=== PATIENT | male | born 1945 | race Two or more races ===

== ENCOUNTER 2020-05-25 22:09 | Inpatient (IN) | payer MEDICARE, MEDICAID ==
[~2020-05-25] VITALS: Ht 180.3 cm; Wt 71.0 kg
[2020-05-25 22:28] LABS: ABG CARBOXYHEMOGLOBIN 0.5 % (0.0-1.5); ABG HCO3 27.8 mmol/L (22.0-26.0); ABG METHEMOGLOBIN 0.2 % (0.0-1.5); ABG OXYGEN CONTENT 13.3 mL/dL (15.0-23.0); ABG OXYGEN SATURATION 98.4 % (95.0-98.0); ABG OXYHEMOGLOBIN 97.7 % (94.0-100.0); ABG PCO2 41 mmHg (35-45); ABG PH 7.452 (7.35-7.450); ABG TOTAL HEMOGLOBIN 9.5 G/dL (12.0-18.0); SOURCE, BLOOD GAS ARTERIAL; TEMPERATURE, FAHRENHEIT, BG 98.6 FAHREN (96.0-98.6)
[2020-05-25 22:29] LABS: INSPIRATORY TIME, BG 0.9 SEC; O2 DEVICE,BLOOD GAS BIPAP (ROOM AIR); SITE, BLOOD GAS RT RADIAL
[2020-05-25] MEDS ORDERED: 0.9% SODIUM CHLORIDE 10 ML SYRINGE IVP PRN (22:30)
[2020-05-25] MEDS ORDERED: PRAV20TA4 PO (22:32)
[2020-05-25] MEDS ORDERED: PHOSLOC PO (22:32)
[2020-05-25] MEDS ORDERED: AMLO-258 PO (22:32)
[2020-05-25] MEDS ORDERED: IPRA4AER IH (22:32)
[2020-05-25] MEDS ORDERED: PANT20TA PO (22:32)
[2020-05-25] MEDS ORDERED: FOLI0.8T22 PO (22:32)
[2020-05-25] MEDS ORDERED: CLOP-31 PO (22:32)
[2020-05-25] MEDS ORDERED: TELM1TAB32 PO (22:32)
[2020-05-25] MEDS ORDERED: METO25XL PO (22:32)
[2020-05-25] MEDS ORDERED: SEVE800T17 PO (22:32)
[2020-05-25] MEDS ORDERED: ASCO500 PO (22:32)
[2020-05-25] MEDS ORDERED: SENN8.6T20 PO (22:32)
[2020-05-25] MEDS ORDERED: GABA-1216 PO (22:32)
[2020-05-25 22:46] LABS: BASOPHILS % (AUTO) 0.4 % (0.0-2.0); HEMATOCRIT 29.8 % (41-53); HEMOGLOBIN 9.5 g/dL (13.5-17.5); LYMPHOCYTES # (AUTO) 6.1 K/uL (1.0-4.8); LYMPHOCYTES % (AUTO) 23.7 % (22.0-44.0); MEAN CORPUSCULAR HEMOGLOBIN 29.9 pg (26.0-34.0); MEAN CORPUSCULAR VOLUME 94 fL (80-100); MONOCYTES # (AUTO) 2.2 K/uL (0.1-1.0); MONOCYTES % (AUTO) 8.6 % (2.0-9.0); NEUTROPHILS # (AUTO) 16.9 K/uL (1.8-7.7); NEUTROPHILS % (AUTO) 66.3 % (40.0-70.0); PLATELET COUNT (AUTO) 483 K/uL (150-450); RED BLOOD CELL COUNT(AUTO) 3.19 MIL/uL (4.50-5.90); RED CELL DISTRIBUTION WIDTH 20.8 % (11.5-14.5)
[2020-05-25] MEDS ORDERED: VANCOMYCIN HCL 1.5 GM in DEXTROSE 5%-WATER 250 ML IV ONE (23:00)
[2020-05-25] MEDS ORDERED: PIPERACILLIN SODIUM/TAZOBACTAM 2.25 GM in DEXTROSE 5%-WATER 50 ML IV ONE (23:00)
[2020-05-25 23:06] LABS: ANION GAP 10 mmol/L (8-16); CALCIUM, TOTAL 9.3 mg/dL (8.8-10.5); CARBON DIOXIDE 30 mmol/L (22-29); CHLORIDE 96 mmol/L (98-107); CREATININE 8.04 mg/dL (0.60-1.30); GLOMERULAR FILTR. RATE CALC 7 mL/min (>60); GLUCOSE,RANDOM 202 mg/dL (70-110); POTASSIUM 4.6 mmol/L (3.5-5.1); SODIUM SERUM 136 mmol/L (136-145); UREA NITROGEN, BLOOD 75 mg/dL (7-18)
[2020-05-25 23:13] LABS: ALANINE AMINOTRANSFERASE 19 U/L (12-78); ALBUMIN 3.1 g/dL (3.4-5.0); ALKALINE PHOSPHATASE 116 U/L (46-116); ASPARTATE AMINOTRANSFERASE 27 U/L (15-37); BILIRUBIN,TOTAL 0.4 mg/dL (0.1-1.0); CREATINE KINASE, TOTAL ONLY 49 U/L (39-308); TOTAL PROTEIN, SERUM 8.6 g/dL (6.4-8.2)
[2020-05-25 23:20] LABS: INR 1.1 (0.9-1.1); PROTHROMBIN TIME 11.1 SEC (9.4-11.6)
[2020-05-26 00:08] LABS: B-TYPE NATRIURETIC PEPTIDE > 5000 pg/mL (0-100)
[2020-05-26 00:14] LABS: LACTIC ACID 2.5 mmol/L (0.4-2.0)
[2020-05-26] MEDS ORDERED: SODIUM CHLORIDE 0.9% 100 ML ONE (00:26)
[2020-05-26] MEDS ORDERED: IOVERSOL 350 MG/ML 100 ML VIAL ONE (00:26)
[2020-05-26] MEDS ORDERED: HEPARIN SODIUM 25000 UNITS/D5W 250 ML IV PRN (01:59)
[2020-05-26] MEDS ORDERED: HEPARIN SODIUM,PORCINE 5,000 UNITS/ML VIAL IVP PRN ×2 (02:00)
[2020-05-26] MEDS ORDERED: ACETAMINOPHEN 325 MG TABLET PO PRN (02:15)
[2020-05-26] MEDS ORDERED: ONDANSETRON HCL 4 MG/2 ML VIAL IVP PRN (02:15)
[2020-05-26 04:11] VITALS: BP 143/72
[2020-05-26 06:33] LABS: D-DIMER 3.09 mg/L FEU (0.00-0.50); INR 1.1 (0.9-1.1); PROTHROMBIN TIME 11.5 SEC (9.4-11.6)
[2020-05-26] MEDS ORDERED: PIPERACILLIN SODIUM/TAZOBACTAM 2.25 GM in DEXTROSE 5%-WATER 50 ML IV ONE (07:00)
[2020-05-26] MEDS: PANTOPRAZOLE SODIUM 80 MG in SODIUM CHLORIDE 0.9% 100 ML IV SCH ×2 (07:01→18:51)
[2020-05-26 07:35] LABS: C-REACTIVE PROTEIN QUANT 5.52 mg/dL (0.00-0.30)
[2020-05-26 07:48] VITALS: BP 129/61
[2020-05-26] MEDS ORDERED: SODIUM CHLORIDE 0.9% 250 ML IV ONE (08:18)
[2020-05-26] MEDS: FUROSEMIDE 40 MG/4 ML VIAL IVP SCH ×2 (09:37→21:28)
[2020-05-26 11:35] VITALS: BP 145/68
[2020-05-26] MEDS ORDERED: SODIUM CHLORIDE 0.9% 2,000 ML ONE (13:21)
[2020-05-26] MEDS ORDERED: [UNRECOGNIZED DRUG - OTHER] PO SCH (15:15)
[2020-05-26] MEDS ORDERED: CLOPIDOGREL BISULFATE 75 MG TABLET PO SCH (15:15)
[2020-05-26] MEDS ORDERED: VANCOMYCIN HCL 1 GM/D5% WATER 200 ML IV PRN (15:15)
[2020-05-26] MEDS ORDERED: [UNRECOGNIZED DRUG - OTHER] PO SCH (15:15)
[2020-05-26] MEDS ORDERED: VITAMIN B COMP/VIT C/FOLIC ACID CAPSULE PO SCH (15:15)
[2020-05-26 16:14] VITALS: BP 161/82
[2020-05-26 17:06] LABS: BASOPHILS % (AUTO) 0.8 % (0.0-2.0); EOSINOPHILS % (AUTO) 1.3 % (1.0-6.0); HEMATOCRIT 21.1 % (41-53); LYMPHOCYTES # (AUTO) 1.7 K/uL (1.0-4.8); LYMPHOCYTES % (AUTO) 13.4 % (22.0-44.0); MEAN CORPUSCULAR HEMOGLOBIN 30.6 pg (26.0-34.0); MEAN CORPUSCULAR HGB CONC 32.9 G/dL (31.0-37.0); MEAN CORPUSCULAR VOLUME 93 fL (80-100); MONOCYTES # (AUTO) 1.2 K/uL (0.1-1.0); MONOCYTES % (AUTO) 9.8 % (2.0-9.0); NEUTROPHILS # (AUTO) 9.2 K/uL (1.8-7.7); NEUTROPHILS % (AUTO) 74.7 % (40.0-70.0); PLATELET COUNT (AUTO) 310 K/uL (150-450); RED BLOOD CELL COUNT(AUTO) 2.27 MIL/uL (4.50-5.90); RED CELL DISTRIBUTION WIDTH 20.5 % (11.5-14.5)
[2020-05-26 17:20] LABS: CALCIUM, TOTAL 8.5 mg/dL (8.8-10.5); CREATININE 9.05 mg/dL (0.60-1.30); POTASSIUM 4.4 mmol/L (3.5-5.1)
[2020-05-26 17:26] LABS: ALBUMIN 2.4 g/dL (3.4-5.0); BILIRUBIN,TOTAL 0.4 mg/dL (0.1-1.0); TOTAL PROTEIN, SERUM 6.6 g/dL (6.4-8.2)
[2020-05-26] MEDS: PRAVASTATIN SODIUM 20 MG TABLET PO SCH (18:51)
[2020-05-26] MEDS: PIPERACILLIN SODIUM/TAZOBACTAM 2.25 GM in DEXTROSE 5%-WATER 50 ML IV SCH (18:51)
[2020-05-26] MEDS: SENNA 187 MG TABLET PO SCH (18:51)
[2020-05-26] MEDS: VITAMIN B COMP/VIT C/FOLIC ACID CAPSULE PO SCH (18:52)
[2020-05-26] MEDS: CALCIUM ACETATE 667 MG CAPSULE PO SCH (18:52)
[2020-05-26] MEDS: ASCORBIC ACID 500 MG TABLET PO SCH (18:52)
[2020-05-26] MEDS: SEVELAMER CARBONATE 800 MG TABLET PO SCH (18:52)
[2020-05-26 20:19] VITALS: BP 163/72
[2020-05-26] MEDS: GABAPENTIN 100 MG CAPSULE PO SCH (21:29)
[2020-05-26] MEDS: METOPROLOL SUCCINATE 25 MG ER TABLET PO SCH (21:29)
[2020-05-26 23:43] VITALS: BP 160/78
[2020-05-27] MEDS: PIPERACILLIN SODIUM/TAZOBACTAM 2.25 GM in DEXTROSE 5%-WATER 50 ML IV SCH ×3 (01:24→17:37)
[2020-05-27] MEDS: PANTOPRAZOLE SODIUM 80 MG in SODIUM CHLORIDE 0.9% 100 ML IV SCH (04:30)
[2020-05-27 04:35] VITALS: BP 157/74
[2020-05-27 06:54] LABS: BASOPHILS % (AUTO) 0.4 % (0.0-2.0); EOSINOPHILS % (AUTO) 2.1 % (1.0-6.0); HEMATOCRIT 22.4 % (41-53); HEMOGLOBIN 7.6 g/dL (13.5-17.5); LYMPHOCYTES # (AUTO) 1.6 K/uL (1.0-4.8); LYMPHOCYTES % (AUTO) 12.5 % (22.0-44.0); MEAN CORPUSCULAR HEMOGLOBIN 31.2 pg (26.0-34.0); MEAN CORPUSCULAR HGB CONC 33.8 G/dL (31.0-37.0); MEAN CORPUSCULAR VOLUME 92 fL (80-100); MONOCYTES # (AUTO) 1.7 K/uL (0.1-1.0); MONOCYTES % (AUTO) 13.4 % (2.0-9.0); NEUTROPHILS # (AUTO) 8.9 K/uL (1.8-7.7); NEUTROPHILS % (AUTO) 71.6 % (40.0-70.0); PLATELET COUNT (AUTO) 302 K/uL (150-450); RED BLOOD CELL COUNT(AUTO) 2.43 MIL/uL (4.50-5.90); RED CELL DISTRIBUTION WIDTH 21.1 % (11.5-14.5)
[2020-05-27 07:30] LABS: ALBUMIN 2.4 g/dL (3.4-5.0); BILIRUBIN,TOTAL 0.5 mg/dL (0.1-1.0); CALCIUM, TOTAL 8.6 mg/dL (8.8-10.5); CREATININE 4.96 mg/dL (0.60-1.30); POTASSIUM 4.7 mmol/L (3.5-5.1); TOTAL PROTEIN, SERUM 6.8 g/dL (6.4-8.2); VANCOMYCIN,RANDOM 13.9 mcg/mL (25.0-50.0)
[2020-05-27 07:40] VITALS: BP 163/87
[2020-05-27] MEDS ORDERED: PIPERACILLIN SODIUM/TAZOBACTAM 0.75 GM in DEXTROSE 5%-WATER 50 ML IV PRN (08:00)
[2020-05-27] MEDS ORDERED: HYDROCHLOROTHIAZIDE 25 MG TABLET PO SCH (09:00)
[2020-05-27] MEDS ORDERED: VANCOMYCIN HCL 1 GM/D5% WATER 200 ML IV ONE (10:00)
[2020-05-27] MEDS ORDERED: PRAV20TA4 PO (10:04)
[2020-05-27] MEDS: SEVELAMER CARBONATE 800 MG TABLET PO SCH ×2 (10:14→17:29)
[2020-05-27] MEDS: GABAPENTIN 100 MG CAPSULE PO SCH ×2 (10:15→21:16)
[2020-05-27] MEDS: SENNA 187 MG TABLET PO SCH (10:15)
[2020-05-27] MEDS: TELMISARTAN 40 MG TABLET PO SCH (10:15)
[2020-05-27] MEDS: VITAMIN B COMP/VIT C/FOLIC ACID CAPSULE PO SCH (10:15)
[2020-05-27] MEDS: METOPROLOL SUCCINATE 25 MG ER TABLET PO SCH ×2 (10:15→21:17)
[2020-05-27] MEDS: CALCIUM ACETATE 667 MG CAPSULE PO SCH ×3 (10:16→17:29)
[2020-05-27] MEDS: AmLODIPine BESYLATE 10 MG TABLET PO SCH (10:16)
[2020-05-27] MEDS: ASCORBIC ACID 500 MG TABLET PO SCH (10:16)
[2020-05-27] MEDS: PRAVASTATIN SODIUM 20 MG TABLET PO SCH (10:17)
[2020-05-27] MEDS: FUROSEMIDE 40 MG/4 ML VIAL IVP SCH ×2 (10:17→21:16)
[2020-05-27] MEDS ORDERED: SODIUM CHLORIDE 0.9% 1,000 ML ONE (10:48)
[2020-05-27] MEDS ORDERED: SODIUM CHLORIDE 0.9% 1,000 ML IV ONE (11:00)
[2020-05-27 11:10] VITALS: BP 165/87
[2020-05-27] MEDS ORDERED: PROPOFOL 1% 20 ML VIAL IVP ONE (12:00)
[2020-05-27] MEDS ORDERED: LIDOCAINE/PF 2% 5 ML SYRINGE IVP ONE (12:00)
[2020-05-27 16:50] VITALS: BP 162/86
[2020-05-27] MEDS ORDERED: HALOPERIDOL LACTATE 5 MG/ML VIAL IVP PRN (17:15)
[2020-05-27 20:15] VITALS: BP 141/74
[2020-05-27] MEDS: PANTOPRAZOLE SODIUM 40 MG/VIAL IVP SCH (21:16)
[2020-05-28] VITALS (10 sets, daily range): BP systolic 113–162; BP diastolic 68–88
[2020-05-28] MEDS: PIPERACILLIN SODIUM/TAZOBACTAM 2.25 GM in DEXTROSE 5%-WATER 50 ML IV SCH ×3 (01:09→17:56)
[2020-05-28 05:38] LABS: BASOPHILS % (AUTO) 0.3 % (0.0-2.0); EOSINOPHILS % (AUTO) 0 % (1.0-6.0); LYMPHOCYTES # (AUTO) 1.3 K/uL (1.0-4.8); MEAN CORPUSCULAR HEMOGLOBIN 32.2 pg (26.0-34.0); MEAN CORPUSCULAR HGB CONC 35.1 G/dL (31.0-37.0); MEAN CORPUSCULAR VOLUME 92 fL (80-100); MONOCYTES # (AUTO) 1.5 K/uL (0.1-1.0); MONOCYTES % (AUTO) 10.3 % (2.0-9.0); NEUTROPHILS % (AUTO) 80.4 % (40.0-70.0); PLATELET COUNT (AUTO) 271 K/uL (150-450); RED BLOOD CELL COUNT(AUTO) 2.14 MIL/uL (4.50-5.90); RED CELL DISTRIBUTION WIDTH 20.7 % (11.5-14.5)
[2020-05-28 05:47] LABS: ALBUMIN 2.4 g/dL (3.4-5.0); BILIRUBIN,TOTAL 0.6 mg/dL (0.1-1.0); CALCIUM, TOTAL 8.6 mg/dL (8.8-10.5); CREATININE 7.12 mg/dL (0.60-1.30); TOTAL PROTEIN, SERUM 6.8 g/dL (6.4-8.2)
[2020-05-28 05:48] LABS: % IRON SATURATION 18.5 % (30-44)
[2020-05-28 06:33] LABS: HEMOGLOBIN 6.9 g/dL (13.5-17.5)
[2020-05-28 06:34] LABS: HEMATOCRIT 19.6 % (41-53)
[2020-05-28] MEDS: CALCIUM ACETATE 667 MG CAPSULE PO SCH ×3 (08:00→17:56)
[2020-05-28] MEDS: SEVELAMER CARBONATE 800 MG TABLET PO SCH ×2 (08:00→17:56)
[2020-05-28] MEDS: GABAPENTIN 100 MG CAPSULE PO SCH ×3 (09:00→20:39)
[2020-05-28] MEDS: SENNA 187 MG TABLET PO SCH (09:00)
[2020-05-28] MEDS ORDERED: SODIUM CHLORIDE 0.9% 250 ML IV ONE (09:46)
[2020-05-28] MEDS: EPOETIN ALFA 10,000 UNITS/ML VIAL SQ SCH (13:19)
[2020-05-28] MEDS: FUROSEMIDE 40 MG/4 ML VIAL IVP SCH ×2 (13:23→20:07)
[2020-05-28] MEDS: PRAVASTATIN SODIUM 20 MG TABLET PO SCH (13:24)
[2020-05-28] MEDS: VITAMIN B COMP/VIT C/FOLIC ACID CAPSULE PO SCH (13:24)
[2020-05-28] MEDS: ASCORBIC ACID 500 MG TABLET PO SCH (13:24)
[2020-05-28] MEDS: AmLODIPine BESYLATE 10 MG TABLET PO SCH (13:25)
[2020-05-28] MEDS: METOPROLOL SUCCINATE 25 MG ER TABLET PO SCH ×2 (13:26→20:07)
[2020-05-28] MEDS: TELMISARTAN 40 MG TABLET PO SCH (13:26)
[2020-05-28] MEDS: PANTOPRAZOLE SODIUM 40 MG/VIAL IVP SCH ×2 (13:28→20:07)
[2020-05-28 13:56] LABS: HEMATOCRIT 24.8 % (41-53); HEMOGLOBIN 8.5 g/dL (13.5-17.5)
[2020-05-28] MEDS: SOD FERRIC GLUC COMPLX/SUCROSE 125 MG in SODIUM CHLORIDE 0.9% 100 ML IV SCH (14:38)
[2020-05-29 00:31] VITALS: BP 149/85
[2020-05-29] MEDS: PIPERACILLIN SODIUM/TAZOBACTAM 2.25 GM in DEXTROSE 5%-WATER 50 ML IV SCH ×3 (00:42→18:20)
[2020-05-29 04:46] VITALS: BP 155/83
[2020-05-29 05:51] LABS: BASOPHILS % (AUTO) 0.2 % (0.0-2.0); EOSINOPHILS % (AUTO) 0.1 % (1.0-6.0); HEMATOCRIT 24.5 % (41-53); HEMOGLOBIN 8.3 g/dL (13.5-17.5); LYMPHOCYTES # (AUTO) 1.2 K/uL (1.0-4.8); MEAN CORPUSCULAR HEMOGLOBIN 30.7 pg (26.0-34.0); MEAN CORPUSCULAR HGB CONC 33.8 G/dL (31.0-37.0); MEAN CORPUSCULAR VOLUME 91 fL (80-100); MONOCYTES # (AUTO) 2.1 K/uL (0.1-1.0); MONOCYTES % (AUTO) 10.2 % (2.0-9.0); NEUTROPHILS % (AUTO) 83.5 % (40.0-70.0); PLATELET COUNT (AUTO) 334 K/uL (150-450); RED BLOOD CELL COUNT(AUTO) 2.71 MIL/uL (4.50-5.90); RED CELL DISTRIBUTION WIDTH 19.9 % (11.5-14.5)
[2020-05-29 06:24] LABS: ALBUMIN 2.7 g/dL (3.4-5.0); BILIRUBIN,TOTAL 0.8 mg/dL (0.1-1.0); CALCIUM, TOTAL 8.9 mg/dL (8.8-10.5); CREATININE 5.15 mg/dL (0.60-1.30); POTASSIUM 3.9 mmol/L (3.5-5.1); TOTAL PROTEIN, SERUM 7.6 g/dL (6.4-8.2)
[2020-05-29 07:57] VITALS: BP 165/77
[2020-05-29] MEDS: ASCORBIC ACID 500 MG TABLET PO SCH (08:43)
[2020-05-29] MEDS: METOPROLOL SUCCINATE 25 MG ER TABLET PO SCH ×2 (08:43→21:41)
[2020-05-29] MEDS: PRAVASTATIN SODIUM 20 MG TABLET PO SCH (08:43)
[2020-05-29] MEDS: VITAMIN B COMP/VIT C/FOLIC ACID CAPSULE PO SCH (08:43)
[2020-05-29] MEDS: AmLODIPine BESYLATE 10 MG TABLET PO SCH (08:43)
[2020-05-29] MEDS: FUROSEMIDE 40 MG/4 ML VIAL IVP SCH ×2 (08:43→21:40)
[2020-05-29] MEDS: PANTOPRAZOLE SODIUM 40 MG/VIAL IVP SCH ×2 (08:43→21:40)
[2020-05-29] MEDS: SEVELAMER CARBONATE 800 MG TABLET PO SCH ×2 (08:43→18:20)
[2020-05-29] MEDS: CALCIUM ACETATE 667 MG CAPSULE PO SCH ×3 (08:44→18:20)
[2020-05-29] MEDS: SENNA 187 MG TABLET PO SCH (08:44)
[2020-05-29] MEDS: TELMISARTAN 40 MG TABLET PO SCH (08:44)
[2020-05-29] MEDS: GABAPENTIN 100 MG CAPSULE PO SCH ×2 (08:44→21:00)
[2020-05-29 10:40] VITALS: BP 149/79
[2020-05-29] MEDS ORDERED: TEMAZEPAM 15 MG CAPSULE PO PRN (10:45)
[2020-05-29] MEDS: SOD FERRIC GLUC COMPLX/SUCROSE 125 MG in SODIUM CHLORIDE 0.9% 100 ML IV SCH (12:16)
[2020-05-29] MEDS ORDERED: PENTETATE DTPA TC99M/MCL ISOTOPE 1 EA INJ INJ ONE (13:05)
[2020-05-29] MEDS ORDERED: MAA ALBUMIN AGGREGATED TC99M/UD<10MCL ISOTOPE 1 EA INJ INJ ONE (13:30)
[2020-05-29 15:23] VITALS: BP 164/82
[2020-05-29] MEDS ORDERED: SODIUM CHLORIDE 0.9% 250 ML IV ONE (18:25)
[2020-05-29 19:34] VITALS: BP 155/82
[2020-05-30] VITALS (7 sets, daily range): BP systolic 117–156; BP diastolic 57–87
[2020-05-30] MEDS: PIPERACILLIN SODIUM/TAZOBACTAM 2.25 GM in DEXTROSE 5%-WATER 50 ML IV SCH ×3 (00:22→17:00)
[2020-05-30 07:36] LABS: BASOPHILS % (AUTO) 0.3 % (0.0-2.0); EOSINOPHILS % (AUTO) 0.3 % (1.0-6.0); HEMATOCRIT 24.5 % (41-53); HEMOGLOBIN 8.1 g/dL (13.5-17.5); LYMPHOCYTES # (AUTO) 1.6 K/uL (1.0-4.8); LYMPHOCYTES % (AUTO) 7.4 % (22.0-44.0); MEAN CORPUSCULAR HEMOGLOBIN 30.2 pg (26.0-34.0); MEAN CORPUSCULAR VOLUME 92 fL (80-100); MONOCYTES # (AUTO) 2.1 K/uL (0.1-1.0); MONOCYTES % (AUTO) 9.9 % (2.0-9.0); NEUTROPHILS # (AUTO) 17.3 K/uL (1.8-7.7); NEUTROPHILS % (AUTO) 82.1 % (40.0-70.0); PLATELET COUNT (AUTO) 322 K/uL (150-450); RED BLOOD CELL COUNT(AUTO) 2.67 MIL/uL (4.50-5.90); RED CELL DISTRIBUTION WIDTH 19.6 % (11.5-14.5)
[2020-05-30 07:47] LABS: ALBUMIN 2.5 g/dL (3.4-5.0); BILIRUBIN,TOTAL 0.7 mg/dL (0.1-1.0); CALCIUM, TOTAL 8.9 mg/dL (8.8-10.5); CREATININE 7.37 mg/dL (0.60-1.30); POTASSIUM 3.9 mmol/L (3.5-5.1); TOTAL PROTEIN, SERUM 7.3 g/dL (6.4-8.2)
[2020-05-30] MEDS: CALCIUM ACETATE 667 MG CAPSULE PO SCH ×3 (08:00→18:00)
[2020-05-30] MEDS: SEVELAMER CARBONATE 800 MG TABLET PO SCH ×2 (08:00→18:00)
[2020-05-30] MEDS: FUROSEMIDE 40 MG/4 ML VIAL IVP SCH ×2 (08:32→20:50)
[2020-05-30] MEDS: PANTOPRAZOLE SODIUM 40 MG/VIAL IVP SCH ×2 (08:38→20:50)
[2020-05-30] MEDS: METOPROLOL SUCCINATE 25 MG ER TABLET PO SCH ×2 (09:00→20:31)
[2020-05-30] MEDS: TELMISARTAN 40 MG TABLET PO SCH (09:00)
[2020-05-30] MEDS: AmLODIPine BESYLATE 10 MG TABLET PO SCH (09:00)
[2020-05-30] MEDS: VITAMIN B COMP/VIT C/FOLIC ACID CAPSULE PO SCH (11:00)
[2020-05-30] MEDS: ASCORBIC ACID 500 MG TABLET PO SCH (11:01)
[2020-05-30] MEDS: EPOETIN ALFA 10,000 UNITS/ML VIAL SQ SCH (11:01)
[2020-05-30] MEDS: GABAPENTIN 100 MG CAPSULE PO SCH ×2 (11:02→20:50)
[2020-05-30] MEDS: SENNA 187 MG TABLET PO SCH (11:03)
[2020-05-30] MEDS: PRAVASTATIN SODIUM 20 MG TABLET PO SCH (11:03)
[2020-05-30] MEDS: SOD FERRIC GLUC COMPLX/SUCROSE 125 MG in SODIUM CHLORIDE 0.9% 100 ML IV SCH (14:12)
[2020-05-30] MEDS ORDERED: VANCOMYCIN HCL 1 GM/D5% WATER 200 ML IV ONE (21:00)
[2020-05-30] MEDS: ACETAMINOPHEN 325 MG TABLET PO PRN (23:31)
[2020-05-31] MEDS: PIPERACILLIN SODIUM/TAZOBACTAM 2.25 GM in DEXTROSE 5%-WATER 50 ML IV SCH ×3 (01:34→17:36)
[2020-05-31 04:32] VITALS: BP 146/83
[2020-05-31 07:09] LABS: BASOPHILS % (AUTO) 0.2 % (0.0-2.0); EOSINOPHILS % (AUTO) 0.1 % (1.0-6.0); HEMATOCRIT 22.9 % (41-53); LYMPHOCYTES # (AUTO) 1.6 K/uL (1.0-4.8); LYMPHOCYTES % (AUTO) 7.1 % (22.0-44.0); MEAN CORPUSCULAR HEMOGLOBIN 32.1 pg (26.0-34.0); MEAN CORPUSCULAR HGB CONC 35.1 G/dL (31.0-37.0); MEAN CORPUSCULAR VOLUME 92 fL (80-100); MONOCYTES # (AUTO) 2.3 K/uL (0.1-1.0); MONOCYTES % (AUTO) 10.4 % (2.0-9.0); NEUTROPHILS # (AUTO) 18.1 K/uL (1.8-7.7); NEUTROPHILS % (AUTO) 82.2 % (40.0-70.0); PLATELET COUNT (AUTO) 314 K/uL (150-450); RED CELL DISTRIBUTION WIDTH 19.9 % (11.5-14.5)
[2020-05-31 07:36] LABS: ALBUMIN 2.4 g/dL (3.4-5.0); BILIRUBIN,TOTAL 0.8 mg/dL (0.1-1.0); CREATININE 4.75 mg/dL (0.60-1.30); POTASSIUM 3.6 mmol/L (3.5-5.1); TOTAL PROTEIN, SERUM 7.3 g/dL (6.4-8.2)
[2020-05-31 08:00] VITALS: BP 152/85
[2020-05-31] MEDS: FUROSEMIDE 40 MG/4 ML VIAL IVP SCH ×2 (08:18→20:37)
[2020-05-31] MEDS: AmLODIPine BESYLATE 10 MG TABLET PO SCH (08:18)
[2020-05-31] MEDS: GABAPENTIN 100 MG CAPSULE PO SCH ×2 (08:19→20:37)
[2020-05-31] MEDS: METOPROLOL SUCCINATE 25 MG ER TABLET PO SCH ×2 (08:19→20:38)
[2020-05-31] MEDS: CALCIUM ACETATE 667 MG CAPSULE PO SCH ×3 (08:19→17:45)
[2020-05-31] MEDS: VITAMIN B COMP/VIT C/FOLIC ACID CAPSULE PO SCH (08:19)
[2020-05-31] MEDS: SEVELAMER CARBONATE 800 MG TABLET PO SCH ×2 (08:19→17:45)
[2020-05-31] MEDS: TELMISARTAN 40 MG TABLET PO SCH (08:20)
[2020-05-31] MEDS: PANTOPRAZOLE SODIUM 40 MG/VIAL IVP SCH ×2 (08:20→20:38)
[2020-05-31] MEDS: PRAVASTATIN SODIUM 20 MG TABLET PO SCH (08:26)
[2020-05-31] MEDS: ASCORBIC ACID 500 MG TABLET PO SCH (08:26)
[2020-05-31] MEDS: SENNA 187 MG TABLET PO SCH (09:00)
[2020-05-31 11:30] VITALS: BP 137/78
[2020-05-31] MEDS: SOD FERRIC GLUC COMPLX/SUCROSE 125 MG in SODIUM CHLORIDE 0.9% 100 ML IV SCH (11:39)
[2020-05-31] MEDS ORDERED: BARIUM SULFATE 0.1% SUSPENSION 450 ML BOTTLE ONE (13:48)
[2020-05-31 16:00] VITALS: BP 159/86
[2020-05-31 20:30] VITALS: BP 138/75
[2020-05-31] MEDS: ACETAMINOPHEN 325 MG TABLET PO PRN (20:50)
[2020-05-31 23:35] VITALS: BP 134/68
[2020-06-01] MEDS: PIPERACILLIN SODIUM/TAZOBACTAM 2.25 GM in DEXTROSE 5%-WATER 50 ML IV SCH ×2 (00:22→08:40)
[2020-06-01 04:20] VITALS: BP 147/77
[2020-06-01 05:15] LABS: BASOPHILS % (AUTO) 0.3 % (0.0-2.0); HEMATOCRIT 24.2 % (41-53); HEMOGLOBIN 8.2 g/dL (13.5-17.5); LYMPHOCYTES # (AUTO) 1.3 K/uL (1.0-4.8); MEAN CORPUSCULAR HEMOGLOBIN 31.4 pg (26.0-34.0); MEAN CORPUSCULAR VOLUME 93 fL (80-100); MONOCYTES # (AUTO) 1.8 K/uL (0.1-1.0); MONOCYTES % (AUTO) 8.5 % (2.0-9.0); NEUTROPHILS # (AUTO) 17.9 K/uL (1.8-7.7); NEUTROPHILS % (AUTO) 84.2 % (40.0-70.0); PLATELET COUNT (AUTO) 347 K/uL (150-450); RED BLOOD CELL COUNT(AUTO) 2.61 MIL/uL (4.50-5.90); RED CELL DISTRIBUTION WIDTH 20.2 % (11.5-14.5)
[2020-06-01 06:27] LABS: ALBUMIN 2.4 g/dL (3.4-5.0); BILIRUBIN,TOTAL 0.8 mg/dL (0.1-1.0); CREATININE 7.19 mg/dL (0.60-1.30); MAGNESIUM 2.3 mg/dL (1.80-2.40); PHOSPHORUS 3.9 mg/dL (2.5-4.9); POTASSIUM 3.4 mmol/L (3.5-5.1); TOTAL PROTEIN, SERUM 7.4 g/dL (6.4-8.2)
[2020-06-01 08:00] VITALS: BP 146/77
[2020-06-01] MEDS: SENNA 187 MG TABLET PO SCH (08:39)
[2020-06-01] MEDS: SEVELAMER CARBONATE 800 MG TABLET PO SCH (08:39)
[2020-06-01] MEDS: TELMISARTAN 40 MG TABLET PO SCH (08:39)
[2020-06-01] MEDS: AmLODIPine BESYLATE 10 MG TABLET PO SCH (08:39)
[2020-06-01] MEDS: ASCORBIC ACID 500 MG TABLET PO SCH (08:39)
[2020-06-01] MEDS: GABAPENTIN 100 MG CAPSULE PO SCH (08:39)
[2020-06-01] MEDS: METOPROLOL SUCCINATE 25 MG ER TABLET PO SCH (08:39)
[2020-06-01] MEDS: PRAVASTATIN SODIUM 20 MG TABLET PO SCH (08:39)
[2020-06-01] MEDS: FUROSEMIDE 40 MG/4 ML VIAL IVP SCH (08:39)
[2020-06-01] MEDS: VITAMIN B COMP/VIT C/FOLIC ACID CAPSULE PO SCH (08:39)
[2020-06-01] MEDS: CALCIUM ACETATE 667 MG CAPSULE PO SCH ×2 (08:39→11:47)
[2020-06-01] MEDS: PANTOPRAZOLE SODIUM 40 MG/VIAL IVP SCH (08:40)
[2020-06-01] MEDS ORDERED: SODIUM CHLORIDE 0.9% 250 ML IV ONE (09:18)
[2020-06-01] MEDS: SOD FERRIC GLUC COMPLX/SUCROSE 125 MG in SODIUM CHLORIDE 0.9% 100 ML IV SCH (11:46)
[2020-06-01 12:00] VITALS: BP 129/73
[2020-06-01 22:19] LABS: C.DIFF GDH ANTIGEN, Stool Negative (Negative)
[2020-06-01 22:20] LABS: C.DIFF TOXINS A&B, Stool Negative (Negative)
== END 2020-06-01 15:10 | DRG 871 ==
LOC: EMS 22:11 → EDSEX 22:11 → 5N 05-26 01:37 → 5S 05-29 13:50
PROVIDERS: ADMIT Hospitalist; ATTEND Hospitalist
PROC: 5A09357 Assistance with Respiratory Ventilation, Less than 24 Consecutive Hours, Continuous Positive Airway Pressure (ICD-10-PCS; 2020-05-26)
PROC: 5A09357 Assistance with Respiratory Ventilation, Less than 24 Consecutive Hours, Continuous Positive Airway Pressure (ICD-10-PCS; 2020-05-27)
PROC: 0DB98ZX Excision of Duodenum, Via Natural or Artificial Opening Endoscopic, Diagnostic (ICD-10-PCS; principal; 2020-05-27 12:00)
PROC: 30233N1 Transfusion of Nonautologous Red Blood Cells into Peripheral Vein, Percutaneous Approach (ICD-10-PCS; 2020-05-28)
PROC: 5A09357 Assistance with Respiratory Ventilation, Less than 24 Consecutive Hours, Continuous Positive Airway Pressure (ICD-10-PCS; 2020-05-28)
PROC: 5A09357 Assistance with Respiratory Ventilation, Less than 24 Consecutive Hours, Continuous Positive Airway Pressure (ICD-10-PCS; 2020-05-30)
PROC: 5A09357 Assistance with Respiratory Ventilation, Less than 24 Consecutive Hours, Continuous Positive Airway Pressure (ICD-10-PCS; 2020-05-31)
DX: A41.9 Sepsis, unspecified organism (principal); J69.0 Pneumonitis due to inhalation of food and vomit; N18.6 End stage renal disease; J96.21 Acute and chronic respiratory failure with hypoxia; I13.2 Hypertensive heart and chronic kidney disease with heart failure and with stage 5 chronic kidney disease, or end stage renal disease; J44.0 Chronic obstructive pulmonary disease with (acute) lower respiratory infection; D64.9 Anemia, unspecified; K21.9 Gastro-esophageal reflux disease without esophagitis; I50.9 Heart failure, unspecified; K29.60 Other gastritis without bleeding; Z20.828 Contact with and (suspected) exposure to other viral communicable diseases; Z99.2 Dependence on renal dialysis
CPT/HCPCS: 36600; 71275; 78582; 82728; 82805; 83540; 83550; 83605; 83615; 83735; 84100; 84145; 85014; 85018; 85379; 86140; 86850; 86900; 86901; 86923; 87040; 87081; 87324; 87340; 87449; 88305; 88312; 88313; 93005; 93970; 94660; 97162; 97530; 99291; A9539; A9540; C9113; G0378; J0885; J1630; J1644; J1940; J2543; J2704; J2916; J3370; J3490; J7030; J7050; J7060; P9016; 36415-L1; 36415-TC; 71045-TC; 80202-TC; 87635; U0003-CS